=== PATIENT | male | born 1965 | race African-American/Black ===

== ENCOUNTER 2018-11-16 07:53 | Emergency (ER) | payer MEDICAID ==
[~2018-11-16] VITALS: Ht 175.3 cm; Wt 87.1 kg
[2018-11-16 08:07] VITALS: BP 142/86
--- NOTE | 2018-11-16 08:36 | Emergency Room Report ---
History of Present Illness General Chief Complaint: Earache Source: Patient Present Illness HPI Patient presents with complaints of pressure to the right ear, and a decreased hearing sensation Ongoing for the past 2 days Denies any obvious trauma or loud noise denies any headache denies any discharge Denies any neck pain or photophobia Denies any vomiting Denies any nasal congestion Allergies: Coded Allergies: IBUPROFEN (Verified Allergy, Unknown, 11/16/18) stomach upset Patient History Past Medical History: see triage record Pertinent Family History: none Reviewed Nursing Documentation: PMH: Agreed; PSxH: Agreed Nursing Documentation-PMH Past Medical History: No Stated History Review of Systems All Other Systems: negative except mentioned in HPI Physical Exam Vital Signs Date Time Temp Pulse Resp B/P (MAP) Pulse Ox O2 Delivery O2 Flow Rate FiO2 11/16/18 07:59 98.2 66 18 151/94 99 Room Air Sp02 EP Interpretation: reviewed, normal General Appearance: well appearing, no apparent distress Head: normocephalic, atraumatic Eyes: bilateral eye PERRL, bilateral eye EOMI ENT: other - The right tympanic membrane appears somewhat retracted, however no obvious perforation, canal itself is clear Neck: full range of motion, supple Respiratory: lungs clear, no retraction, no accessory muscle use Cardiovascular #1: regular rate, rhythm Gastrointestinal: non tender, soft Musculoskeletal: normal inspection Neurologic: alert, oriented x3, responsive Skin: no rash, warm/dry Lymphatic: no adenopathy Medical Decision Making Diagnostic Impression: Primary Impression: Hearing abnormally acute Additional Impressions: Hearing deficit Retracted tympanic membrane ER Course Given the patient's history exam and findings Patient initially will be attempted on decongestant type medicine I do not see any obvious perforation Mastoid is nontender Other differentials such as tumor, mass considered at this time patient will have referral to ENT as well if symptoms are not improving Last Vital Signs Date Time Temp Pulse Resp B/P (MAP) Pulse Ox O2 Delivery O2 Flow Rate FiO2 11/16/18 08:07 98.4 68 16 142/86 100 Room Air Status: unchanged Disposition: HOME, SELF-CARE Condition: Stable Scripts Cetirizine Hcl* (ZYRTEC*) 10 Mg Tablet 10 MG ORAL DAILY for 7 Days, #30 TAB 0 Refills Prov: Vikki Chappell DO 11/16/18 Referrals: SIN JIANG,REFERRING (PCP) Additional Instructions: Patient is provided with the discharge instructions notified to follow up with primary doctor in the next 2-3 days otherwise return to the er with any worsening symptoms. Please note that this report is being documented using [employer] technology. This can lead to erroneous entry secondary to incorrect interpretation by the dictating instrument. Vikki Chappell DO Nov 16, 2018 08:36
[2018-11-16] MEDS ORDERED: ZYRTEC10 MG ORAL (08:43)
[2018-11-16 08:48] VITALS: BP 136/84
== END 2018-11-16 08:49 | disposition home or self-care (01) ==
LOC: EMR 08:14
DX: H91.91 Unspecified hearing loss, right ear (principal); Z88.6 Allergy status to analgesic agent; H73.891 Other specified disorders of tympanic membrane, right ear
CPT/HCPCS: 99282